=== PATIENT | male | born 1975 | race Caucasian/White ===

== ENCOUNTER 2018-09-23 15:05 | Emergency (ER) | payer OTHER ==
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
[2018-09-23 15:24] VITALS: BP 142/91
== END 2018-09-23 15:41 | disposition home or self-care (01) ==
LOC: ED 15:05
DX: S01.112A Laceration without foreign body of left eyelid and periocular area, initial encounter (principal); V43.92XA Unspecified car occupant injured in collision with other type car in traffic accident, initial encounter; Y93.89 Activity, other specified; Y92.410 Unspecified street and highway as the place of occurrence of the external cause
CPT/HCPCS: 12011; 99282